=== PATIENT | male | born 1980 | race Two or more races ===

== ENCOUNTER 2019-09-13 00:07 | Emergency (ER) | payer MEDICARE, MEDICAID ==
[~2019-09-13] VITALS: Ht 185.4 cm; Wt 106.6 kg
--- NOTE | 2019-09-13 00:17 | Emergency Room Report ---
History of Present Illness General Chief Complaint: Trauma Source: Patient Present Illness HPI Patient is a 39-year-old male denies any significant past medical history who presents to the ER status post trauma. He states that he was working on a car and the trent let go and the car hit him on the right side of his head. He is complaining of head pain, neck pain and right hand pain. He is ambulatory. He was brought in by his friend. He states that he does not know when his last tetanus shot was. He denies any chest pain, shortness of breath or abdominal pain. Allergies: Coded Allergies: CEPHALEXIN (Verified Allergy, Unknown, 09/13/19) Patient History Reviewed Nursing Documentation: PMH: Agreed; PSxH: Agreed Review of Systems All Other Systems: negative except mentioned in HPI Physical Exam Sp02 EP Interpretation: reviewed, normal General Appearance: GCS 15, non-toxic - Right scalp occipital region close to ear semicircular flap laceration approximately 10 cm in length with oozing and surrounding hematoma, mild distress Eyes: bilateral eye normal inspection, bilateral eye PERRL ENT: hearing grossly normal, normal pharynx, no angioedema, normal voice Neck: full range of motion, supple/symm/no masses, other - 2 cm laceration posterior base of neck around C8-T1 no step-offs Respiratory: chest non-tender, lungs clear, normal breath sounds, speaking full sentences Cardiovascular #1: regular rate, rhythm, no edema Gastrointestinal: normal bowel sounds, non tender, soft, non-distended, no guarding, no rebound Rectal: deferred Genitourinary: normal inspection, no CVA tenderness Musculoskeletal: other - Right hand complains of diffuse tenderness maximal along the entire middle finger patient has small superficial laceration to volar surface of pinky finger above the MIP with normal range of motion approximately 1 cm Neurologic: alert, motor strength/tone normal, oriented x3, sensory intact, responsive, speech normal Psychiatric: anxious Skin: no rash Lymphatic: no adenopathy Medical Decision Making Diagnostic Impression: Primary Impression: Closed head injury Additional Impression: Scalp laceration ER Course While awaiting his laboratory studies, CT and ER treatment patient got on the phone with somebody and started yelling. Patient suddenly got up and said that he was refusing all ER care. The patient is of adult age and has sound mind with no evidence of altered mental status suggesting metabolic or infections etiologies. I explained in layman's terms the risk of leaving against medical advise including and significant comorbidity. The patient was given reasonable options. This was explained in front of the patient and the bedside nurse DANIEL Calles. The AMA for was signed and witnessed by a nurse and patient. Disposition: AGAINST MEDICAL ADVICE Condition: Unknown Demi Luke M.D. September 13, 2019 00:17
[2019-09-13 00:20] VITALS: BP 147/87
[2019-09-13] MEDS ORDERED: fentaNYL 100 mcg/2 mL IV ONE (00:30)
[2019-09-13] MEDS ORDERED: Tetanus/Diptheria/Pertussis IM ONE (00:30)
== END 2019-09-13 00:40 | disposition left against medical advice (07) ==
LOC: EMR 00:38
DX: S09.90XA Unspecified injury of head, initial encounter (principal); S01.01XA Laceration without foreign body of scalp, initial encounter; S61.411A Laceration without foreign body of right hand, initial encounter; S11.91XA Laceration without foreign body of unspecified part of neck, initial encounter; W22.8XXA Striking against or struck by other objects, initial encounter; Y92.9 Unspecified place or not applicable; Z88.8 Allergy status to other drugs, medicaments and biological substances; M25.541 Pain in joints of right hand; M54.2 Cervicalgia
CPT/HCPCS: 99281